=== PATIENT | female | born 1935 | race Caucasian/White ===

== ENCOUNTER → 2017-06-14 | Outpatient (CLI) | payer MEDICARE, OTHER | END | disposition home or self-care (01) | LOC: GMAH 10:20 | PROVIDERS: ATTEND Family Medicine | DX: E78.2 Mixed hyperlipidemia (principal) ==

== ENCOUNTER → 2017-12-31 | Outpatient (CLI) | payer MEDICARE, OTHER ==
--- NOTE | 2017-12-31 15:17 | CT ---
EXAM DESCRIPTION: Chest w/o Contrast : Computed Tomography. CLINICAL HISTORY: SOLITARY PULMONARY NODULE COMPARISON: Chest CT scan 05/06/2015. TECHNIQUE: Spiral-axial scans at 5.0 mm intervals through the lungs and thorax without IV contrast. 2.5 mm lung algorithm axial reconstructions. Coronal and sagittal 2.0 Mm reconstructions. Total Exam DLP: 382.44 mGy-cm. This exam was performed according to our departmental dose-optimization program which includes automated exposure control, adjustment of the mA and/or kV according to patient size and/or use of iterative reconstruction technique; to reduce radiation dose to as low as reasonably achievable (ALARA). FINDINGS: Small dilated parenchymal airspaces more prevalent in the upper lobes in the mid and lower lung levi. Nodular thickening of the lateral aspect of the left major fissure is stable. Scarring or atelectasis in the inferior lingula and the inferior right middle lobe. Atelectasis in the posterior right base. No abnormal nodule or mass. No pleural effusion or pneumothorax. Bilateral apical pleural thickening also abutting the diaphragms. Evaluation of the chest soft tissues limited due to lack of IV contrast. Heterogeneous density of the thyroid gland. No large soft tissue masses in the base of the neck mediastinum or hilar areas axilla or chest wall. Atherosclerotic calcifications in the aorta and proximal brachiocephalic vessels. Coronary artery calcifications. Tracheal calcifications. No fluid in the some diaphragmatic peritoneal space. Spleen is elevated into the base of the right left hemidiaphragm along with the diaphragm. Normal density of the adrenal glands. Atherosclerotic calcifications in the abdominal aorta. Minimal spondylosis of the thoracic spine. IMPRESSION: 1. Minimal thickening of the left major fissure which may be prior inflammation or lymph node. Stable since the prior study in 2014. No new abnormal nodules or masses. No pleural effusion or pneumothorax. 2. Limited evaluation of the soft tissues due to lack of IV contrast. No large masses. Electronically signed by: Souleymane Miller MD 12/31/2017 3:16 PM CDT
== END ==
LOC: CT 08:16
PROVIDERS: ATTEND Family Medicine
DX: R91.1 Solitary pulmonary nodule (principal)

== ENCOUNTER → 2018-07-22 | Outpatient (CLI) | payer OTHER | LOC: GMAH 10:44 | PROVIDERS: ATTEND Family Medicine | DX: E78.2 Mixed hyperlipidemia (principal) ==

== ENCOUNTER 2018-12-23 09:34 | Emergency (ER) | payer OTHER ==
[2018-12-23 10:01] VITALS: TEMP 99.3
--- NOTE | 2018-12-23 10:17 | RAD ---
EXAM DESCRIPTION: Knee,Right Complete CLINICAL HISTORY: fall yesterday c ant/medial pain COMPARISON: None. FINDINGS: 3 views of the right knee show a irregular mildly comminuted transversely oriented fracture through the mid aspect of the patella without significant separation of the fracture fragments. Moderate overlying soft tissue swelling is seen. Large area of increased density in the suprapatellar bursa is seen. Mild narrowing of the lateral patellofemoral compartment with mild joint line osteophytes are seen. Mild calcifications of the arterial vasculature are seen. Mild narrowing of the medial tibiofemoral compartment and mild joint line osteophytes are seen. IMPRESSION: Comminuted nondisplaced transverse oriented fracture of the right patella is seen with large hemarthrosis of the right knee. 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 Electronically signed by: David Philip MD 12/23/2018 10:15 AM CDT
[2018-12-23 10:47] VITALS: O2SAT 94
--- NOTE | 2018-12-23 10:57 | ED.PDOC ---
History of Present Illness - General Chief Complaint: Trauma Stated Complaint: right knee pain Time Seen by Provider: 12/23/18 09:49 Source: patient Exam Limitations: no limitations - History of Present Illness Initial Comments: the patient is an 83-year-old female presenting to the emergency room secondary to persistent right knee pain after she fell accidentally yesterday and hit her knee on the concrete. She does have a bruise over the kneecap and is tender in that area. She also has some mild tenderness medially. She is able to move the leg and has been ambulatory on its own. Extensor mechanism is in place. No palpable bony deformity however. She is neurovascularly at her baseline. No other significant injuries. Timing/Duration: 24 hours Severity: moderate Improving Factors: immobilization Worsening Factors: movement Associated Symptoms: denies symptoms Allergies/Adverse Reactions: Allergies NO KNOWN ALLERGY Allergy (Verified 12/23/18 09:51) Home Medications: Ambulatory Orders Budesonide-Formoterol Fumarate [Symbicort] 1 aer IN DAILY 12/23/18 Review of Systems - Review of Systems Constitutional: States: no symptoms reported EENTM: States: no symptoms reported Respiratory: States: no symptoms reported Cardiology: States: no symptoms reported Gastrointestinal/Abdominal: States: no symptoms reported Genitourinary: States: no symptoms reported Musculoskeletal: States: see HPI Skin: States: see HPI Neurological: States: no symptoms reported Endocrine: States: no symptoms reported All other Systems: No Change from Baseline Past Medical History (General) - Patient Medical History Hx Stroke: No Hx Asthma: No Hx Cardiac Disorders: No Hx Diabetes: No - Social History Hx Tobacco Use: No Family Medical History - Family History Mother Family History: No Known Physical Exam - Physical Exam General Appearance: Alert, Comfortable, No apparent distress Eye Exam: bilateral normal Ears, Nose, Throat: hearing grossly normal, normal pharynx Neck: full range of motion, supple Respiratory: lungs clear, normal breath sounds, no respiratory distress, no accessory muscle use Cardiovascular/Chest: normal peripheral pulses, no edema, other - regular rateregular rate Peripheral Pulses: radial,right: 2+, radial,left: 2+, dorsalis pedis,right: 2+, dorsalis pedis,left: 2+ Gastrointestinal/Abdominal: non tender, soft Rectal Exam: deferred Extremity: no pedal edema, no calf tenderness, normal capillary refill, other - see history of present illness for the right knee. 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 X-ray shows a essentially nondisplaced mildly comminuted fracture of the right patella. Extensor mechanism is preserved. She is neurologically and vascularly at her baseline. The patient is going to be placed in a knee immobilizer to be used for the next few weeks to prevent bending while she is weightbearing. If the fracture heals in its current condition, it should not require any further repair. The patient is going to be written for a walker to help prevent any further falls. She does need to have a repeat x-ray performed in 10-14 days with her primary care doctor to make sure it is healing well. ER warnings were given for any worsening. Departure - Departure Clinical Impression: Patella fracture Qualifiers: Encounter type: initial encounter Fracture type: closed Fracture morphology: comminuted Fracture alignment: nondisplaced Laterality: right Qualified Code(s): S82.044A - Nondisplaced comminuted fracture of right patella, initial encounter for closed fracture Disposition: Discharge to Home or Self Care Condition: Fair Departure Forms: ED Discharge - Pt. Copy, Patient Portal Self Enrollment Diet: regular diet Activity: no pushing/pulling with affected limb Referrals: Mukesh Vega MD [Primary Care Provider] - 1-2 Weeks Home Medications: Ambulatory Orders Budesonide-Formoterol Fumarate [Symbicort] 1 aer IN DAILY 12/23/18 Additional Instructions: the patient is a 83-year-old female presenting with right knee pain. X-ray shows a essentially nondisplaced mildly comminuted fracture of the right patella. Extensor mechanism is preserved. She is neurologically and vascularly at her baseline. The patient is going to be placed in a knee immobilizer to be used for the next few weeks to prevent bending while she is weightbearing. If the fracture heals in its current condition, it should not require any further repair. The patient is going to be written for a walker to help prevent any further falls. She does need to have a repeat x-ray performed in 10-14 days with her primary care doctor to make sure it is healing well. ER warnings were given for any worsening.
[2018-12-23 11:53] VITALS: BP 181/92
== END 2018-12-23 11:50 | disposition home or self-care (01) ==
LOC: ER 09:34
DX: S82.044A Nondisplaced comminuted fracture of right patella, initial encounter for closed fracture (principal); W19.XXXA Unspecified fall, initial encounter; Y92.480 Sidewalk as the place of occurrence of the external cause

== ENCOUNTER 2019-05-10 09:42 | Emergency (ER) | payer MEDICARE, OTHER ==
[2019-05-10] MEDS ORDERED: LIDOCAINE 1% 10 ML VIAL INJ ONE (09:50)
[2019-05-10] MEDS ORDERED: TETANUS,DIPHTHERIA,PERTUSSIS 1 EA SYG IM ONE (10:17)
--- NOTE | 2019-05-10 10:52 | ED.PDOC ---
History of Present Illness - General Chief Complaint: Skin/Abrasion/Tear Time Seen by Provider: 05/10/19 10:17 Source: patient, RN notes reviewed, Vital Signs reviewed - History of Present Illness Initial Comments: Pt is an 84 y/o WF who presents from home with c/o skin tears of left forearm. Pt is unsure when her last Tetanus shot occurred. She knows it was more than 10 yrs ago. Pt was lifting the lid to the trash dumpster and it slid down her arm and tore her skin. Pt washed it out at home. Pt denies any n/v/fever/chest pain/sob/dizziness/blurry vision. Pt denies any weakness or numbness. Timing/Duration: 1/2 hour, constant Severity: mild Improving Factors: rest Worsening Factors: movement Associated Symptoms: denies symptoms Allergies/Adverse Reactions: Allergies NO KNOWN ALLERGY Allergy (Verified 12/23/18 09:51) Home Medications: Ambulatory Orders Budesonide-Formoterol Fumarate [Symbicort] 1 aer IN DAILY 12/23/18 Review of Systems - Review of Systems Constitutional: Denies: chills, fever, weakness EENTM: States: no symptoms reported Respiratory: States: no symptoms reported, see HPI Cardiology: States: no symptoms reported, see HPI Gastrointestinal/Abdominal: States: see HPI Genitourinary: States: no symptoms reported Musculoskeletal: States: see HPI. Denies: joint pain, joint swelling Skin: States: see HPI, other - 2 skin tears on left forearm. Neurological: States: see HPI. Denies: numbness, tingling, weakness Endocrine: States: no symptoms reported Hematologic/Lymphatic: States: no symptoms reported All other Systems: Reviewed and Negative Past Medical History (General) - Patient Medical History Hx Seizures: No Hx Stroke: No Hx Dementia: No Hx Asthma: No Hx Cardiac Disorders: No Hx Hypertension: No Hx Diabetes: No - Social History Hx Tobacco Use: No Family Medical History - Family History Mother Family History: No Known Physical Exam - Physical Exam General Appearance: Alert, Comfortable, No apparent distress, Well Developed, Well Groomed, Well Hydrated, Well Nourished Eye Exam: bilateral normal - PERRL/EOMI Ears, Nose, Throat: hearing grossly normal, normal ENT inspection, normal pharynx Neck: full range of motion, supple, normal inspection Respiratory: chest non-tender, no accessory muscle use, wheezing - expiratory Cardiovascular/Chest: normal peripheral pulses, regular rate, rhythm, no JVD, no murmur, tachycardia Peripheral Pulses: radial,right: 2+, radial,left: 2+ Gastrointestinal/Abdominal: normal bowel sounds, non tender, soft Back Exam: normal inspection, no CVA tenderness, no vertebral tenderness, CVA tenderness (R), CVA tenderness (L) Extremity: normal range of motion, non-tender, other - 2 skin tears to left forearm. Distal tear is jagged and approximately 15 cm. The proximal skin tear is semicircular and is 10 cm Neurologic: parts washer II-XII nml as tested, no motor/sensory deficits, alert, normal mood/affect, oriented x 3 Skin Exam: normal color, warm/dry, other - see MSK exam Progress - Progress Progress: 05/10/19 11:05 Pt d/c home. Robby Yi M.D., [facility], [id number] Procedures - Laceration/Wound Repair Left Arm Wound Length (cm): 15 Wound's Depth, Shape: irregular, flap Wound Explored: no foreign body removed Irrigated w/ Saline (cc's): 250 Betadine Prep?: No Anesthesia: 1% Lidocaine Volume Anesthetic (cc's): 5 Wound Debrided: none Wound Repaired With: sutures, steri-strips Suture Size/Type: 4:0, prolene Number of Sutures: 3 Layer Closure?: No Sterile Dressing Applied?: Yes Left Dorsal Arm Wound Length (cm): 10 Wound's Depth, Shape: superficial, flap Wound Explored: wound is semicircular skin tear Irrigated w/ Saline (cc's): 250 Betadine Prep?: No Anesthesia: 1% Lidocaine Volume Anesthetic (cc's): 5 Wound Debrided: no debridement Wound Repaired With: sutures, steri-strips - The remainder of the skin tear was steristripped. Suture Size/Type: 4:0 Number of Sutures: 2 Layer Closure?: No Sterile Dressing Applied?: Yes Departure - Departure Clinical Impression: Tetanus toxoid inoculation Skin tear of forearm without complication Qualifiers: Encounter type: initial encounter Laterality: left Qualified Code(s): S51.812A - Laceration without foreign body of left forearm, initial encounter Disposition: Discharge to Home or Self Care Condition: Good Departure Forms: ED Discharge - Pt. Copy, Patient Portal Self Enrollment Instructions: DI for Abrasion, DI for Wound Infection Activity: may shower, no tub bath - after 24 hours. Referrals: Luke Ingram MD [Primary Care Provider] - 1-2 Weeks Home Medications: Ambulatory Orders Budesonide-Formoterol Fumarate [Symbicort] 1 aer IN DAILY 12/23/18 Additional Instructions: Return to ED for suture removal in 7-10 days.
[2019-05-10 11:09] VITALS: BP 152/79; TEMP 98.6; O2SAT 100
== END 2019-05-10 11:11 | disposition home or self-care (01) ==
LOC: ER 09:42
DX: S51.812A Laceration without foreign body of left forearm, initial encounter (principal); W22.8XXA Striking against or struck by other objects, initial encounter; Y92.9 Unspecified place or not applicable